=== PATIENT | female | born 1950 | race Asian ===

== ENCOUNTER 2020-10-28 08:19 | Emergency (ER) | payer OTHER ==
[~2020-10-28] VITALS: Ht 162.6 cm; Wt 54.4 kg
[2020-10-28] MEDS ORDERED: SKELAXIN800 MG PO (11:37)
[2020-10-28] MEDS ORDERED: DICLOFENAC POTA50 MG PO (11:37)
== END 2020-10-28 13:33 ==
LOC: ER 08:19
DX: M62.830 Muscle spasm of back (principal); M54.5 Low back pain